=== PATIENT | female | born 1960 | race Caucasian/White ===

== ENCOUNTER 2021-08-28 14:55 | Emergency (ER) | payer SELFPAY ==
[2021-08-28] MEDS ORDERED: Sodium Chloride 0.9% 10 ML Syringe FLUSH PRN (15:09)
--- NOTE | 2021-08-28 15:58 | EDM.PDOC ---
ED HPI GENERAL MEDICAL PROBLEM - General Chief Complaint: Chest Pain Stated Complaint: [facility] Time Seen by Provider: 08/28/21 15:08 Source of Information: Reports: Patient, RN Notes Reviewed - History of Present Illness INITIAL COMMENTS - FREE TEXT/NARRATIVE: 61 yr old female comes in with 2 day hx of chest pain. Had J and J covid vaccine, first dose 3 days ago. Had some nausea that evening. Has not been vomiting. Has had 2 doses of aspirin today. Chest pain is now gone but still present up to about 1 hr ago. She had her first episodes of chest discomfort Sunday afternoon 2 days ago, several episodes of discomfort yesterday and than a more severe episode this past afternoon that lasted about 60 to 90 minutes. No hx of diabetes, Htn, CAC. She does smoke. She is not coughing, does not feel short of breath. 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 [No Known Home Meds] 08/28/21 [History] Past Medical History Gastrointestinal History: Reports: Cholelithiasis - Infectious Disease History Infectious Disease History: Reports: Novel Coronavirus Social & Family History - Tobacco Use Tobacco Use Status *Q: Current Every Day Tobacco User Years of Tobacco use: 40 Packs/Tins Daily: 0.2 - Recreational Drug Use Recreational Drug Use: No ED ROS GENERAL - Review of Systems Review Of Systems: See Below Constitutional: Denies: Fever, Chills, Diaphoresis HEENT: Reports: No Symptoms Respiratory: Denies: Shortness of Breath, Pleuritic Chest Pain, Cough Cardiovascular: Reports: Chest Pain GI/Abdominal: Reports: Nausea. Denies: Abdominal Pain, Diarrhea, Vomiting Musculoskeletal: Denies: Shoulder Pain, Arm Pain, Back Pain Skin: Reports: No Symptoms Neurological: Reports: No Symptoms ED EXAM, GENERAL - Physical Exam Exam: See Below General Appearance: Alert, No Apparent Distress Eye Exam: Bilateral Eye: PERRL Neck: Supple Respiratory/Chest: No Respiratory Distress, Lungs Clear, Normal Breath Sounds, Other (mild tenderness L sternal border) Cardiovascular: Regular Rate, Rhythm GI/Abdominal: Soft, Non-Tender Extremities: Normal Inspection. No: Leg Pain, Increased Warmth, Redness Neurological: Alert, Oriented, No Motor/Sensory Deficits Skin Exam: Warm, Dry, Normal Color, No Rash #1 Interpretation EKG Date: 08/28/21 Rhythm: NSR Rate (Beats/Min): 76 [place]: Normal P-Wave: Present QRS: RBBB ST-T: Other (T wave inv. inf. leads, mild st depression V2 and V3) Course - Vital Signs Last Recorded V/S: Last Vital Signs Temp 97.4 F 08/28/21 15:02 Pulse 75 08/28/21 15:02 Resp 21 H 08/28/21 15:02 BP 135/77 08/28/21 15:02 Pulse Ox 97 08/28/21 15:02 - Orders/Labs/Meds Orders: Active Orders 24 hr Category Date Time Status Peripheral IV Insertion Adult [OM.PC] Stat Oth 08/28/21 15:09 Ordered Labs: Laboratory Tests 08/28/21 08/28/21 08/28/21 Range/Units 15:10 15:10 15:10 WBC 6.54 (3.98-10.04) K/mm3 RBC 4.60 (3.98-5.22) M/mm3 Hgb 13.6 (11.2-15.7) gm/dl Hct 42.1 (34.1-44.9) % MCV 91.5 (79.4-94.8) fl MCH 29.6 (25.6-32.2) pg MCHC 32.3 (32.2-35.5) g/dl RDW Std Deviation 48.5 H (36.4-46.3) fL Plt Count 296 (182-369) K/mm3 MPV 10.0 (9.4-12.3) fl Neut % (Auto) 55.6 (34.0-71.1) % Lymph % (Auto) 32.1 (19.3-51.7) % [place] % (Auto) 9.9 (4.7-12.5) % Eos % (Auto) 1.8 (0.7-5.8) Baso % (Auto) 0.3 (0.1-1.2) % Neut # (Auto) 3.63 (1.56-6.13) K/mm3 Lymph # (Auto) 2.10 (1.18-3.74) K/mm3 [place] # (Auto) 0.65 H (0.24-0.36) K/mm3 Eos # (Auto) 0.12 (0.04-0.36) K/mm3 Baso # (Auto) 0.02 (0.01-0.08) K/mm3 Sodium 139 (136-145) mEq/L Potassium 3.9 (3.5-5.1) mEq/L Chloride 106 (98-107) mEq/L Carbon Dioxide 27 (21-32) mEq/L Anion Gap 9.9 (5-15) BUN 11 (7-18) mg/dL Creatinine 0.7 (0.55-1.02) mg/dL Est Cr Clr Drug Dosing 59.85 mL/min Estimated GFR (MDRD) > 60 (>60) mL/min BUN/Creatinine Ratio 15.7 (14-18) Glucose 114 H (70-99) mg/dL Calcium 8.5 (8.5-10.1) mg/dL Ferritin (8-252) ng/ml Total Bilirubin 0.4 (0.2-1.0) mg/dL AST 20 (15-37) U/L ALT 16 (14-59) U/L Alkaline Phosphatase 87 (46-116) U/L Troponin I 0.072 H* (0.00-0.056) ng/mL C-Reactive Protein 2.1 H* (<1.0) mg/dL Total Protein 8.0 (6.4-8.2) g/dl Albumin 3.1 L (3.4-5.0) g/dl Globulin 4.9 gm/dL Albumin/Globulin Ratio 0.6 L (1-2) SARS-CoV-2 RNA (WAQAR) (NEGATIVE) 08/28/21 08/28/21 08/28/21 Range/Units 15:10 16:40 17:55 WBC (3.98-10.04) K/mm3 RBC (3.98-5.22) M/mm3 Hgb (11.2-15.7) gm/dl Hct (34.1-44.9) % MCV (79.4-94.8) fl MCH (25.6-32.2) pg MCHC (32.2-35.5) g/dl RDW Std Deviation (36.4-46.3) fL Plt Count (182-369) K/mm3 MPV (9.4-12.3) fl Neut % (Auto) (34.0-71.1) % Lymph % (Auto) (19.3-51.7) % [place] % (Auto) (4.7-12.5) % Eos % (Auto) (0.7-5.8) Baso % (Auto) (0.1-1.2) % Neut # (Auto) (1.56-6.13) K/mm3 Lymph # (Auto) (1.18-3.74) K/mm3 [place] # (Auto) (0.24-0.36) K/mm3 Eos # (Auto) (0.04-0.36) K/mm3 Baso # (Auto) (0.01-0.08) K/mm3 Sodium (136-145) mEq/L Potassium (3.5-5.1) mEq/L Chloride (98-107) mEq/L Carbon Dioxide (21-32) mEq/L Anion Gap (5-15) BUN (7-18) mg/dL Creatinine (0.55-1.02) mg/dL Est Cr Clr Drug Dosing mL/min Estimated GFR (MDRD) (>60) mL/min BUN/Creatinine Ratio (14-18) Glucose (70-99) mg/dL Calcium (8.5-10.1) mg/dL Ferritin 191 (8-252) ng/ml Total Bilirubin (0.2-1.0) mg/dL AST (15-37) U/L ALT (14-59) U/L Alkaline Phosphatase (46-116) U/L Troponin I 0.097 H* (0.00-0.056) ng/mL C-Reactive Protein (<1.0) mg/dL Total Protein (6.4-8.2) g/dl Albumin (3.4-5.0) g/dl Globulin gm/dL Albumin/Globulin Ratio (1-2) SARS-CoV-2 RNA (WAQAR) Negative (NEGATIVE) Meds: Medications Discontinued Medications Generic Name Dose Route Start Last Admin Trade Name Freq PRN Reason Stop Dose Admin Heparin Sodium (Porcine) 4,000 units 08/28/21 19:02 08/28/21 19:36 Heparin Sodium 5,000 Units/Ml Vial IVPUSH 10/31/21 19:03 4,000 units .BOLUS ONE Administration Heparin Sodium/Dextrose 25,000 units in 500 mls @ 17.418 mls/hr 08/28/21 19:15 08/28/21 19:36 Heparin 25,000 Units In D5w 500 Ml IV 12 units/kg/hr TITRATE BARRERA 17.418 mls/hr Administration Protocol 12 UNITS/KG/HR Sodium Chloride 10 ml 08/28/21 15:09 08/28/21 16:06 Sodium Chloride 0.9% 10 Ml Syringe FLUSH 10 ml ASDIRECTED PRN Administration Keep Vein Open - Re-Assessments/Exams Free Text/Narrative Re-Assessment/Exam: 08/28/21 16:20. Trop. has come back elevated at .072. Pt remains pain free. Will repeat a 3 hr trop. CXR looks OK, Radiologist is calling areas of hazy density R upper and bilat lower lungs. covid screen also ordered. 08/28/21 18:40. Repeat trop is higher, .097. she will be treated as NON- stemi. 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 Heparin bolus of 4,000 units and drip of 1,000 units per hr ordered. Pt remains pain free, sinus rythm, no ectopy. 08/28/21 19:15. Both [facility] are on diversion. Dr Valenzuela, [facility] ED accepts patient in transfer. [place] is too far, about 180 miles to send safely by ground ambulance and would take one of our local crews and ambulance out of local service for too long, 7 to 8 hrs, so will send by fixed wing. Departure - Departure Time of Disposition: 19:34 Disposition: DC/Tfer to Acute Hospital 02 Reason for Transfer *Q: Other Condition: Serious Clinical Impression: Non-STEMI (non-ST elevated myocardial infarction) Referrals: PCP,None [Primary Care Provider] - Forms: ED Department Discharge Sepsis Event Note (ED) - Evaluation Sepsis Screening Result: No Definite Risk - My Orders Last 24 Hours: My Active Orders 08/28/21 15:09 Peripheral IV Insertion Adult [OM.PC] Stat - Assessment/Plan Last 24 Hours: My Active Orders 08/28/21 15:09 Peripheral IV Insertion Adult [OM.PC] Stat
--- NOTE | 2021-08-28 16:02 | CR ---
Chest: Portable view of the chest was obtained. Comparison: No prior chest imaging is available. Heart size and mediastinum are normal. Hazy density is seen within the right upper and right lower lung as well as left lower lung. Difficult to exclude minimal areas of acute parenchymal change. Lungs otherwise are clear. Bony structures show nothing acute. Impression: 1. Findings suspicious for minimal areas of parenchymal density within the upper right and lower bilateral lungs. Please exclude Covid pneumonia as an etiology. Diagnostic code #3
[2021-08-28] MEDS ORDERED: Heparin Sodium 5,000 Units/ML Vial IVPUSH ONE (19:02)
[2021-08-28] MEDS ORDERED: Heparin Sodium/D5W 25,000 UNITS/500 ML BAG IV SCH (19:15)
== END 2021-08-28 20:57 ==
LOC: JD.ED 14:55
DX: I21.4 Non-ST elevation (NSTEMI) myocardial infarction (principal); Z72.0 Tobacco use; Z20.822 Contact with and (suspected) exposure to COVID-19
CPT/HCPCS: 36415; 71045; 71045-26; 80053; 82728; 84484; 85025; 86140; 93005; 96365; 99285-25; J1644; U0002